=== PATIENT | female | born 1935 | race Caucasian/White ===

== ENCOUNTER 2020-07-31 17:46 | Observation (INO) | payer MEDICARE, SELFPAY ==
--- NOTE | ~2020-07-31 | XR_ITS ---
EXAMINATION: XR chest 2V 08/02/2020 11:00 INDICATION: Follow-up pneumonia. Dyspnea. PROCEDURE: PA and lateral views of the chest COMPARISON: 07/31/2020 FINDINGS: There is bibasilar atelectasis/scarring. No focal pneumonia. The lungs are hyperinflated wh ich is consistent with, but not diagnostic of chronic obstructive pulmonary disease. The cardiomedia stinal silhouette is within normal limits. There are no pleural effusions. There is no pneumothorax suspected. IMPRESSION: 1: Bibasilar atelectasis/scarring. Reviewed, dictated and finalized at location B.
--- NOTE | ~2020-07-31 | XR_ITS ---
EXAMINATION: XR chest 1V portable DATE: 07/31/2020 21:07 INDICATION: Hallucinations. Back pain. TECHNIQUE: A single frontal view of the chest was obtained. COMPARISON: CT abdomen and pelvis 07/31/2020 FINDINGS: There is mild scarring at the lung apices. There are mild airspace opacities in the lower l prisca zones. No pleural effusion or pneumothorax. The heart size is normal. IMPRESSION: 1. Mild airspace opacities in the lower lung zones, likely a combination of atelectasis/scarring and mild pneumonia. Reviewed, dictated and finalized at location A. IMPRESSION: 1. Mild airspace opacities in the lower lung zones, likely a combination of ate lectasis/scarring and mild pneumonia.
--- NOTE | ~2020-07-31 | CT_ITS ---
EXAMINATION: CT abd pelvis lumbar w con DATE: 07/31/2020 20:15 INDICATION: Low back pain. TECHNIQUE: Computed tomography (CT) of the abdomen and pelvis and lumbar spine was performed with 100 mL Omnipaque 350 intravenous contrast. Automated exposure control and iterative reconstruction techn ique were employed. The dose-length product was 253.39 mGy-cm. COMPARISON: None FINDINGS: CT ABDOMEN AND PELVIS: The visualized portions of the lung bases demonstrate mild atelectasis. There is mild bronchiectasis in right middle lobe and right lower lobe. There are centrilobular nodules and tree-in-bud opacities in right middle lobe and lingula. There are small airspace opacities in treva medial segment left lower lobe. These findings are consistent with pneumonia. No pleural effusion. Th e heart size is normal. There are coronary artery calcifications. No pericardial effusion. The liver, gallbladder, spleen, pancreas, adrenal glands, and kidneys are normal. There is diverticulosis of th e colon without evidence of diverticulitis. There are no dilated loops of bowel. The appendix is not visualized. There are no pathologically enlarged lymph nodes. There is no free intraperitoneal fluid. There is severe right hip osteoarthritis and moderate left hip osteoarthritis. CT LUMBAR SPINE: Bone alignment is normal. Vertebral body heights and intervertebral disc heights are normal. The following disc levels are specifically discussed: L1-L2: The disc does not extend beyond the endplate margin. There is mild bilateral facet joint osteo arthritis. There is no neural foraminal stenosis. There is no central canal stenosis. L2-L3: The disc is bulging. There is severe bilateral facet joint osteoarthritis. There is mild left neural foraminal stenosis. There is mild central canal stenosis. L3-L4: The disc is bulging. There is mild bilateral facet joint osteoarthritis. There is mild bilater al neural foraminal stenosis. There is mild central canal stenosis. L4-L5: The disc is bulging. There is moderate bilateral facet joint osteoarthritis. There is mild ruth ateral neural foraminal stenosis. There is mild central canal stenosis. L5-S1: The disc does not extend beyond the endplate margin. There is severe right and moderate left f acet joint osteoarthritis. There is no neural foraminal stenosis. There is no central canal stenosis. IMPRESSION: 1. Mild bilateral pneumonia. The associated bronchiectasis suggests this finding may be chronic or re current. 2. Mild lumbar spondylosis. Reviewed, dictated and finalized at location A. IMPRESSION: 1. Mild bilateral pneumonia. The associated bronchiectasis suggests this findin g may be chronic or recurrent. 2. Mild lumbar spondylosis.
--- NOTE | ~2020-07-31 | CT_ITS ---
EXAMINATION: CT brain wo con DATE: 07/31/2020 21:24 INDICATION: Hallucinations. Confusion. TECHNIQUE: Computed tomography (CT) of the head was performed without intravenous contrast. The mA wa s adjusted according to patient size. Iterative reconstruction technique was employed. The dose-lengt h product was 605.33 mGy-cm. COMPARISON: Head CT 11/24/2012 FINDINGS: There are scattered areas of low attenuation in the cerebral white matter. There is an old lacunar infarct in left lentiform nucleus. There is no intracranial hemorrhage, acute infarction, or abnormal intracranial mass lesion. The ventricles are normal in size. There is a 4 mm saccular aneury sm of right middle cerebral artery. There is mucosal thickening in the paranasal sinuses. There are t race bilateral mastoid effusions. The orbits are normal. IMPRESSION: 1. 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 2. Moderate nonspecific cerebral white matter disease, which likely represents chronic small vessel i schemic disease, worsened from 11/24/2012. 3. 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 Reviewed, dictated and finalized at location A. IMPRESSION: 1. 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 2. Moderate nonspecific cerebral white matter disease, which likely represents chronic small vessel ischemic disease, worsened from 11/24/2012. 3. 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
--- NOTE | ~2020-07-31 | CT_ITS ---
EXAMINATION: CTA brain carotid DATE: 08/02/2020 17:09 INDICATION: Unruptured cerebral aneurysm. TECHNIQUE: Computed tomographic angiography (CTA) of the head was performed without and with 100 mL O mnipaque-350 intravenous contrast. CTA of the neck was performed with intravenous contrast. Automated exposure control and iterative reconstruction technique were employed. The dose-length product was 1 799.25 mGy-cm. Maximum intensity projection and volume rendered 3D-reconstructions were created by mahesh paredes technologist on a separate workstation. COMPARISON: Head CT 07/31/2020 FINDINGS: HEAD CTA: There is an old lacunar infarct in the left lentiform nucleus. There are scattered areas of low attenuation in the cerebral white matter. There is no intracranial hemorrhage, acute infarction, or abnormal intracranial mass lesion. The ventricles are normal in size. There is mucosal thickening in the paranasal sinuses, worst in left maxillary sinus. There is thickening and sclerosis of the le ft maxillary sinus albarado, consistent with chronic sinusitis. The mastoid air cells are normal. The or bits are normal. Left vertebral artery is dominant. There is no significant stenosis of basilar arter y or the posterior cerebral arteries. There is no significant stenosis of the intracranial internal c arotid arteries or anterior or middle cerebral arteries. There is a 4 mm saccular aneurysm of right m iddle cerebral artery. Anterior communicating artery is normal. Posterior communicating arteries are not identified. NECK CTA: There is mild scarring at the lung apices. There are no pathologically enlarged lymph nodes . There is no significant stenosis of the vertebral arteries. There is mild plaque in the proximal in ternal carotid arteries. There is 0% stenosis of the proximal right internal carotid artery relative to normal distal artery lumen diameter (NASCET criteria). There is 0% stenosis of the proximal left i nternal carotid artery relative to normal distal artery lumen diameter. There is severe cervical spon dylosis. IMPRESSION: 1. 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 2. 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 3. Moderate nonspecific cerebral white matter disease, which likely represents chronic small vessel i schemic disease. 4. 0% stenosis of the proximal internal carotid arteries relative to normal distal artery lumen diame ters (NASCET criteria). Reviewed, dictated and finalized at location A. IMPRESSION: 1. 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 2. 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 3. Moderate nonspecific cerebral white matter disease, which likely represents chronic small vessel ischemic disease. 4. 0% stenosis of the proximal internal carotid arteries relative to normal dis donny artery lumen diameters (NASCET criteria).
[2020-07-31 17:50] VITALS: BP 157/110; PULSE 91; RESP 16; TEMP 36.4; O2SAT 100
[2020-07-31 18:31] VITALS: BP 195/96; PULSE 88; RESP 18; O2SAT 98
[2020-07-31 18:49] LABS: Add Urine Microscopic? NO; Appearance Urine Clear (Clear); Bilirubin Urine Negative (Negative); Blood Urine Negative (Negative); Color Urine Yellow (Yellow); Glucose Urine UA Negative (Negative); Ketones Urine Negative (Negative); Leukocyte Esterase Ur Negative LEU/UL (Negative); Nitrate Urine Negative (Negative); Protein Urine Negative (Negative); Specific Grav Ur 1.012 (1.001-1.035); Urobilinogen Urine Negative mg/dL (<2.0)
[2020-07-31 19:11] LABS: Basophils Absolute Auto 0.1 K/mm3 (0.0-0.1); Basophils Percent Auto 0.6 % (0.2-1.2); Eosinophils Percent Auto 0.2 % (0-4.4); Hematocrit 39.1 % (37.0-47.0); Hemoglobin 13.3 g/dL (12.0-15.0); Immature Granulocyte Absolute 0.04 K/mm3 (0.00-0.031); Immature Granulocyte Percent A 0.4 % (0-0.5); Lymphocytes Absolute Auto 1.53 K/mm3 (0.9-3.2); Lymphocytes Percent Auto 14.5 % (18.3-44.2); Mean Corpuscular Hemoglobin 31.1 pg (26-34); Mean Corpuscular Volume 91.4 fl (80-100); Mean Platelet Volume 11.3 fl (7.4-10.4); Monocytes Absolute Auto 0.7 K/mm3 (0.1-0.6); Monocytes Percent Auto 6.8 % (2.6-8.5); Neutrophils Absolute Auto 8.2 K/mm3 (1.3-6.7); Neutrophils Percent Auto 77.5 % (45.5-73.1); Platelet Count Result 216 k/mm3 (150-375); Red Blood Count 4.28 M/mm3 (4.2-5.4); Red Cell Distribution Width 12.6 % (11.5-14.5); White Blood Count 10.6 K/mm3 (4.5-10.0)
[2020-07-31 19:21] LABS: Lactic Acid Reflex 0.8 mmol/L (0.7-2.1)
[2020-07-31 19:22] LABS: Potassium 3.6 mmol/L (3.4-5.0)
--- NOTE | 2020-07-31 19:23 | ED.ABDPAIN ---
HPI - Abdominal Pain General Chief Complaint: Urogenital-Female Stated Complaint: back pain x 15 days/hallucinations Time Seen by Provider: 07/31/20 18:52 Source: patient Mode of arrival: ambulatory Limitations: no limitations History of Present Illness HPI narrative: Patient is an 84-year-old female who presents to emergency department for evaluation of mid lumbar back pain that has been present for 15 days patient is unsure as to the etiology patient denies radiation of pain patient thought maybe she had a urinary tract infection patient notes last night she had hallucinations of seeing things that were not there and hearing music patient lives at home with family and on arrival today is resting comfortably in the room in no distress notes that she has been taken ibuprofen for her back pain and recently restarted her hydrochlorothiazide and otherwise denies any other injury or trauma illness or medication changes has not been seen for this complaint Related Data Allergies Allergy/AdvReac Type Severity Reaction Status Date / Time lisinopril Allergy Unknown Unknown Verified 07/31/20 18:35 Sulfa (Sulfonamide Allergy Unknown Unknown Verified 07/31/20 18:35 Antibiotics) Review of Systems Review of Systems: All systems reviewed & are unremarkable except as noted in HPI and below PMFSH Family History Family History (Updated 03/13/19 @ 13:47 by DOCTOR UNKNOWN) Grandparent Acute myocardial infarction Father Acute myocardial infarction, Onset Age: 81 Mother Family history of pancreatic cancer, Onset Age: 70 Family history of primary malignant neoplasm of liver, Onset Age: 70 Sibling Family history of malignant neoplasm of breast Social History Social History Smoking status: Never smoker Second hand tobacco smoke exposure: No Alcohol intake: current Gender identity (if verbalized by the patient): Female Exam Narrative: Exam Narrative: GENERAL: Well-appearing, well-nourished, and in no acute distress. HEAD: Normocephalic, atraumatic. EYES: PERRLA and EOMI. ENT: Nares clear, no rhinorrhea or epistaxis. Mucous membranes moist. Oropharynx without tonsillar hypertrophy exudate or other lesions. NECK: Supple. No adenopathy or masses. CHEST: Clear to auscultation. No respiratory distress. Slight crackles in the lung bases HEART: Regular rate and rhythm. No murmur heard. Normal peripheral pulses. ABDOMEN: Soft, nontender, nondistended EXTREMITIES: Normal range of motion. No edema. Mid paraspinal lumbar spine no deformities noted SKIN: Warm, dry, no rash. NEURO: No focal deficits. Alert and oriented x3. Cranial nerves II through XII grossly intact. Normal speech. Motor and sensory intact and symmetrical in the extremities PSYCH: Normal mood and affect. Course Course Emergency Course: Patient in the room at this time in no distress resting comfortably aware of the case findings and treatment plan and diagnosis felt best to be kept overnight due to her visual and auditory hallucinations noting that she has also had some in the room. Consultations Consultation #1: Spoke with who is agreed to accept the patient would like the patient to be treated for pneumonia with Zithromax would also like neurology consult for the CAT scan finding Date: 07/31/20 Time: 21:53 Consultation #2: [facility] neurology notes that he feels that it is okay for the patient to stay at [facility] given the CT findings Vital Signs Vital signs: Vital Signs Temperature 97.5 F L 07/31/20 17:50 Pulse Rate 91 07/31/20 17:50 Respiratory Rate 16 07/31/20 17:50 Blood Pressure 157/110 H 07/31/20 17:50 Pulse Oximetry 100 07/31/20 17:50 Temperature 97.5 F L 07/31/20 17:50 Pulse Rate 72 07/31/20 19:37 Respiratory Rate 17 07/31/20 19:37 Blood Pressure 186/93 H 07/31/20 19:37 Pulse Oximetry 98 07/31/20 19:37 MDM - Abdomina
[2020-07-31] MEDS: SODIUM CHLORIDE 0.9% IV 500 ML 999 ML IV CONT (19:36)
[2020-07-31 19:37] VITALS: BP 186/93; PULSE 72; RESP 17; O2SAT 98
[2020-07-31 19:38] LABS: Alanine Aminotransferase 14 U/L (4-35); Albumin Level 4.5 g/dL (3.5-5.1); Alkaline Phosphatase 105 U/L (38-126); Anion Gap 7 mmol/L (8-16); Aspartate Amino Transferase 27 U/L (14-36); Bilirubin,Total 0.7 mg/dL (0.2-1.3); Blood Urea Nitrogen 13 mg/dL (7-17); CRP < 0.5 mg/dL (<1.0); Calcium 9.6 mg/dL (8.4-10.2); Carbon Dioxide 29 mmol/L (22-30); Chloride 97 mmol/L (98-107); Estimated CRCL calculation 36 ml/min; Estimated Glomerular Filt Rate 60; Glucose 99 mg/dL (65-105); Lipase 170 U/L (23-300); Sodium 133 mmol/L (137-145)
[2020-07-31 22:28] VITALS: BP 163/94; PULSE 90; TEMP 36.9; O2SAT 98
[2020-08-01] VITALS: BP 135/83; PULSE 95; RESP 18; TEMP 36.9; O2SAT 97; BMI 19.6
--- NOTE | 2020-08-01 00:10 | ADMGEN ---
This patient, Mckenna Feliciano, was admitted to [facility] Surg Room 332-01. Patient/family oriented to hospital policies and general routines including ID bracelet, bed and alarms, visiting hours, pain management, procedures, bathroom and other care routines, personal items, smoking policy, room service/diet, and visiting hours. Valuables list has been completed. Information on how to activate the Rapid Response Team has been discussed. Patient/Family are encouraged to report perceived risks to care and to ask questions if they do not understand what they are told or what they should do.
[2020-08-01] MEDS: LACTATED RINGERS 1,000 ML 75 ML IV CONT ×2 (00:22→15:06)
--- NOTE | 2020-08-01 01:23 | PM.IMHP ---
H&P: HPI History of Present Illness Date/Time: 08/01/20 01:23 Chief complaint: Pneumonia, auditory and visual hallucinations Narrative: this is a pleasant 84-year-old female with known past medical history of hypertension on chronic hydrochlorothiazide and who presented to the [facility] for evaluation of lower back pain. The patient describes that she has had worsening lower back pain for over a week now and attributes it to increased activity. She states that over a week ago she was doing a lot of yd work including raking of grass and plants. 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 Finally she also admits that she got down off of a truck and when she landed she felt something to weak in her back The night before her symptoms started. For the past week or so the patient has had increased lower back pain. The patient denies any fevers or chills, chest pain, shortness of breath, coughing, dysuria, hematuria. She does report however that she has had a couple days of diarrhea and did experience nausea vomiting when she had diarrhea. She also admits that she has been suffering hallucinations for the past 2 days. Her hallucinations come and go and she describes hearing music coming out of her oven and seeing people that are simply not there.Chest x-ray obtained in the emergency room this evening demonstrated mild airspace opacities in the lower lung zones. The patient was started on IV antibiotics and admitted to the hospital. She was also swabbed for COVID-19, Review of Systems Review of Systems: All systems reviewed & are unremarkable except as noted in HPI and below PMFSH Past Medical History Medical History (Updated 08/01/20 @ 06:38 by Jakub Gonzalez MD) Hypertension Surgical History Surgical History (Updated 08/01/20 @ 01:28 by Jakub Gonzalez MD) History of appendectomy Family History Family History (Updated 03/13/19 @ 13:47 by DOCTOR UNKNOWN) Grandparent Acute myocardial infarction Father Acute myocardial infarction, Onset Age: 81 Mother Family history of pancreatic cancer, Onset Age: 70 Family history of primary malignant neoplasm of liver, Onset Age: 70 Sibling Family history of malignant neoplasm of breast Social History Social History Smoking status: Never smoker Second hand tobacco smoke exposure: No Alcohol intake: current Substance use: never Gender identity (if verbalized by the patient): Female Spiritual care concerns: No Meds Home Medications and Allergies Home Medications Medication Instructions Recorded Confirmed Type hydrochlorothiazide 25 mg tablet 25 mg PO DAILY #90 tablet 09/25/19 08/01/20 Rx Allergies Allergy/AdvReac Type Severity Reaction Status Date / Time lisinopril Allergy Unknown Unknown Verified 07/31/20 18:35 Sulfa (Sulfonamide Allergy Unknown Unknown Verified 07/31/20 18:35 Antibiotics) Vital Signs Vital Signs - 24 hr 07/31/20 17:50 07/31/20 18:31 07/31/20 19:37 Temperature 36.4 C L Pulse Rate 91 88 72 Respiratory Rate 16 18 17 Blood Pressure 157/110 H 195/96 H 186/93 H Pulse Oximetry 100 98 98 07/31/20 22:28 Temperature 36.9 C Pulse Rate 90 Respiratory Rate Blood Pressure 163/94 H Pulse Oximetry 98 Exam Const: General: cooperative, healthy appearing, no acute distress, alert and awake Nutritional Appearance: well nourished Orientation/consciousness: patient oriented x3 HENMT: Head: normal to inspection General nose exam: Normal external nose present Face and sinus: normal facial exam Mouth: Yes Normal oral and palatal mucosa present and Yes oropharynx normal Eyes: Pupils: Equal, round and reactive pupils present EOM: EOMs intact bilaterally Neck: Neck: supple and no JVD Thyroid: thyroid normal Lymphatic: lymphadenopathy no
[2020-08-01 06:00] VITALS: BP 159/91; PULSE 82; RESP 18; TEMP 36.4; O2SAT 98
[2020-08-01 06:58] LABS: Basophils Absolute Auto 0.1 K/mm3 (0.0-0.1); Basophils Percent Auto 0.8 % (0.2-1.2); Eosinophils Absolute Auto 0.1 K/mm3 (0-0.3); Eosinophils Percent Auto 0.7 % (0-4.4); Hematocrit 36.7 % (37.0-47.0); Hemoglobin 12.2 g/dL (12.0-15.0); Immature Granulocyte Absolute 0.03 K/mm3 (0.00-0.031); Immature Granulocyte Percent A 0.4 % (0-0.5); Lymphocytes Absolute Auto 1.62 K/mm3 (0.9-3.2); Lymphocytes Percent Auto 22.8 % (18.3-44.2); Mean Corpuscular HGB Conc 33.2 g/dl (32-36); Mean Corpuscular Hemoglobin 30.9 pg (26-34); Mean Corpuscular Volume 92.9 fl (80-100); Mean Platelet Volume 11.6 fl (7.4-10.4); Monocytes Absolute Auto 0.6 K/mm3 (0.1-0.6); Monocytes Percent Auto 8.9 % (2.6-8.5); Neutrophils Absolute Auto 4.7 K/mm3 (1.3-6.7); Neutrophils Percent Auto 66.4 % (45.5-73.1); Platelet Count Result 208 k/mm3 (150-375); Red Blood Count 3.95 M/mm3 (4.2-5.4); Red Cell Distribution Width 12.9 % (11.5-14.5); White Blood Count 7.1 K/mm3 (4.5-10.0)
[2020-08-01 07:12] LABS: Anion Gap 4 mmol/L (8-16); Blood Urea Nitrogen 11 mg/dL (7-17); Calcium 8.9 mg/dL (8.4-10.2); Carbon Dioxide 30 mmol/L (22-30); Chloride 101 mmol/L (98-107); Estimated CRCL calculation 46 ml/min; Estimated Glomerular Filt Rate > 60; Glucose 95 mg/dL (65-105); Potassium 3.6 mmol/L (3.4-5.0); Sodium 135 mmol/L (137-145)
[2020-08-01 08:00] VITALS: BP 172/82; PULSE 72; RESP 16; TEMP 36.7; O2SAT 98
[2020-08-01] MEDS: FAMOTIDINE 20 MG/2 ML VIAL IV PUSH ×2 (10:04→20:41)
[2020-08-01] MEDS: hydroCHLOROthiazide 25 MG TABLET PO (10:04)
--- NOTE | 2020-08-01 11:37 | WPDNEURCNPN ---
Assessment and Plan Assessment and plan (1) Suspected 2019 novel coronavirus infection: Code(s): Z20.828 - Contact with and (suspected) exposure to other viral communicable diseases Status: Acute (2) Abnormal chest xray: Code(s): R93.89 - Abnormal findings on diagnostic imaging of other specified body structures Status: Acute (3) Lower back pain: Qualifiers: Back pain laterality: midline Chronicity: acute Sciatica presence: without sciatica Qualified Code(s): M54.5 - Low back pain Code(s): M54.5 - Low back pain Status: Acute (4) Hypertension: Qualifiers: Hypertension type: unspecified Qualified Code(s): I10 - Essential (primary) hypertension Code(s): I10 - Essential (primary) hypertension Status: Chronic (5) Pneumonia: Code(s): J18.9 - Pneumonia, unspecified organism Status: Acute (6) Hallucinations: Code(s): R44.3 - Hallucinations, unspecified Status: Acute Additional Plan for the time being treatment will be continued as such with IV fluids diarrhea antihypertensive medication Consult date: 08/01/20 Time Seen: 11:15 HPI: Mckenna Feliciano is a 84 year old female who has been admitted to the hospital for the auditory and visual hallucination along with ongoing history of 1. Hypertension 2. Chronic hydro chlorothiazide therapy 3. Worsening lower back pain over the last week she was doing excessive amount of yd work including raking of grass and plants she is known tocan her tomatoes she was picking up cans and she felt weak in her lower back. with the last week or so she was having increasing low back pain she gave no history of any generalized symptomatology though over the last couple of days she had diarrhea along with mild nausea and vomiting b she accepted that she is having hallucination for the last couple of days which come and go hearing music coming out of her oven seeing people that are simply there she has already been swab for the COVID-19 pneumonia Review of Systems Review of Systems: All systems reviewed & are unremarkable except as noted in HPI and below PMFSH Past Medical History Medical History (Updated 08/01/20 @ 06:38 by Jakub Gonzalez MD) Hypertension Surgical History Surgical History (Updated 08/01/20 @ 01:28 by Jakub Gonzalez MD) History of appendectomy Family History Family History (Updated 03/13/19 @ 13:47 by DOCTOR UNKNOWN) Grandparent Acute myocardial infarction Father Acute myocardial infarction, Onset Age: 81 Mother Family history of pancreatic cancer, Onset Age: 70 Family history of primary malignant neoplasm of liver, Onset Age: 70 Sibling Family history of malignant neoplasm of breast Social History Social History Smoking status: Never smoker Second hand tobacco smoke exposure: No Alcohol intake: current Substance use: never Gender identity (if verbalized by the patient): Female Spiritual care concerns: No Meds Home Medications and Allergies Home Medications Medication Instructions Recorded Confirmed Type hydrochlorothiazide 25 mg tablet 25 mg PO DAILY #90 tablet 09/25/19 08/01/20 Rx Allergies Allergy/AdvReac Type Severity Reaction Status Date / Time lisinopril Allergy Unknown Unknown Verified 07/31/20 18:35 Sulfa (Sulfonamide Allergy Unknown Unknown Verified 07/31/20 18:35 Antibiotics) Vital Signs Vital Signs - 24 hr 07/31/20 17:50 07/31/20 18:31 07/31/20 19:37 Temperature 36.4 C L Pulse Rate 91 88 72 Respiratory Rate 16 18 17 Blood Pressure 157/110 H 195/96 H 186/93 H Pulse Oximetry 100 98 98 07/31/20 22:28 08/01/20 00:00 08/01/20 06:00 Temperature 36.9 C 36.9 C 36.4 C Pulse Rate 90 95 82 Respiratory Rate 18 18 Blood Pressure 163/94 H 135/83 159/91 H Pulse Oximetry 98 97 98 08/01/20 08:00 Temperature 36.7 C Pu
[2020-08-01 12:00] VITALS: BP 136/71; PULSE 78; RESP 18; TEMP 37; O2SAT 98
[2020-08-01 12:25] LABS: SARS-CoV-2 RNA PCR Negative
[2020-08-01 14:00] VITALS: BP 143/72; PULSE 75; RESP 16; TEMP 37.1; O2SAT 99
--- NOTE | 2020-08-01 15:50 | PM.IMPN ---
Subjective Date/time seen: 08/01/20 15:50 Interval history: Pt admitted with pneumonia, auditory and visual hallucinations, no acute issues reported by nurses, pt seen by hardwood floor installer this morning history of LBP and HTN and pneumonia. Pt is COVID negative can move out of the isolation room. Objective Data Vital Signs Vital Signs: Vital Signs - 24 hr 07/31/20 17:50 07/31/20 18:31 07/31/20 19:37 Temperature 36.4 C L Pulse Rate 91 88 72 Respiratory Rate 16 18 17 Blood Pressure 157/110 H 195/96 H 186/93 H Pulse Oximetry 100 98 98 07/31/20 22:28 08/01/20 00:00 08/01/20 06:00 Temperature 36.9 C 36.9 C 36.4 C Pulse Rate 90 95 82 Respiratory Rate 18 18 Blood Pressure 163/94 H 135/83 159/91 H Pulse Oximetry 98 97 98 08/01/20 08:00 08/01/20 12:00 08/01/20 14:00 Temperature 36.7 C 37.0 C 37.1 C Pulse Rate 72 78 75 Respiratory Rate 16 18 16 Blood Pressure 172/82 H 136/71 143/72 H Pulse Oximetry 98 98 99 Intake/Output Intake/Output: Intake & Output 07/29/20 07/30/20 07/31/20 08/01/20 23:59 23:59 23:59 23:59 Intake Total 750 1610 Output Total 400 Balance 750 1210 Meds/Results Medications: Active Medications Generic Name Dose Route Start Last Admin Trade Name Freq PRN Reason Stop Dose Admin Cyclobenzaprine HCl 10 mg 08/01/20 00:45 Flexeril PO Q8H PRN Muscle Spasm Famotidine 20 mg 08/01/20 09:00 08/01/20 10:04 Pepcid Iv IV PUSH 20 mg Q12HR PILAR Administration Hydralazine HCl 10 mg 07/31/20 21:10 Apresoline Hcl Inj IV PUSH Q8H PRN see comment Hydrochlorothiazide 25 mg 08/01/20 09:00 08/01/20 10:04 Hydrochlorothiazide PO 25 mg DAILY PILAR Administration Acetaminophen 1,000 mg in 100 mls @ 400 mls/hr 07/31/20 21:56 Ofirmev 1,000 Mg Ivpb IVPB 08/01/20 21:57 Q6H PRN Mild Pain (1-3) or Fever Lactated Ringer's 1,000 mls @ 75 mls/hr 07/31/20 22:00 08/01/20 15:06 Lr - Lactated Ringers Iv IV CONT 75 mls/hr .[id number] PILAR Administration Radiology Results: ITS Impressions Miscellaneous CT Procedure 07/31/20 20:16 IMPRESSION: 1. Mild bilateral pneumonia. The associated bronchiectasis suggests this finding may be chronic or recurrent. 2. Mild lumbar spondylosis. Chest X-Ray 07/31/20 21:08 IMPRESSION: 1. Mild airspace opacities in the lower lung zones, likely a combination of atelectasis/scarring and mild pneumonia. Head CT 07/31/20 21:36 IMPRESSION: 1. 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 2. Moderate nonspecific cerebral white matter disease, which likely represents chronic small vessel ischemic disease, worsened from 11/24/2012. 3. 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 Labs Labs: Laboratory Results - last 24 hr 07/31/20 07/31/20 07/31/20 18:33 19:02 19:02 WBC 10.6 H RBC 4.28 Hgb 13.3 Hct 39.1 MCV 91.4 MCH 31.1 MCHC 34.0 RDW 12.6 Plt Count 216 MPV 11.3 H Immature Gran % (Auto) 0.4 Neut % (Auto) 77.5 H Lymph % (Auto) 14.5 L [place] % (Auto) 6.8 Eos % (Auto) 0.2 Baso % (Auto) 0.6 Lymph # (Auto) 1.53 [place] # (Auto) 0.7 H Eos # (Auto) 0.0 Baso # (Auto) 0.1 Abs Immat Gran (auto) 0.04 H Absolute Neuts (auto) 8.2 H Absolute Nucleated RBC 0.0 Nucleated RBC % 0.0 Sodium 133 L Potassium 3.6 Chloride 97 L Carbon Dioxide 29 Anion Gap 7 L BUN 13 Creatinine 0.90 Estim Creat Clear Calc 36 Estimated GFR 60 Glucose 99 Lactic Acid Calcium 9.6 Total Bilirubin 0.7 AST 27 ALT 14 Alkaline Phosphatase 105 C-Reactive Protein < 0.5 Total Protein 8.0 Albumin 4.5 Lipase 170 Urine Color Yellow Urine Appearance Clear Urine pH 6.0 Ur Specific [place] 1.012 Urine Protein Negative Urine Glucose (UA) Negative Urine Ketones Negative Ur Blood (Man) Negative Urine Nitrate Negative Urine Bilirubin Negative Urine Urobi
[2020-08-01 22:00] VITALS: BP 141/74; PULSE 78; RESP 20; TEMP 36.9; O2SAT 98
[2020-08-02] MEDS: LACTATED RINGERS 1,000 ML 75 ML IV CONT (04:40)
[2020-08-02 06:00] VITALS: BP 135/68; PULSE 82; RESP 20; TEMP 36.8; O2SAT 96
[2020-08-02] MEDS: FAMOTIDINE 20 MG/2 ML VIAL IV PUSH (09:00)
[2020-08-02] MEDS: hydroCHLOROthiazide 25 MG TABLET PO (09:00)
--- NOTE | 2020-08-02 13:28 | WPDNEUROPN ---
Progress Note: A&P Assessment and Plan (1) Abnormal chest xray: Code(s): R93.89 - Abnormal findings on diagnostic imaging of other specified body structures Status: Acute (2) Lower back pain: Qualifiers: Chronicity: acute Back pain laterality: midline Sciatica presence: without sciatica Qualified Code(s): M54.5 - Low back pain Code(s): M54.5 - Low back pain Status: Acute (3) Hypertension: Qualifiers: Hypertension type: unspecified Qualified Code(s): I10 - Essential (primary) hypertension Code(s): I10 - Essential (primary) hypertension Status: Chronic (4) Pneumonia: Code(s): J18.9 - Pneumonia, unspecified organism Status: Acute (5) Hallucinations: Code(s): R44.3 - Hallucinations, unspecified Status: Acute (6) Unruptured cerebral aneurysm: Code(s): I67.1 - Cerebral aneurysm, nonruptured Status: Acute Additional Plan I discussed in detail the finding of which is 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 pressure is lucid enough to understand it well and I told her if she wishes to pursue it further then she can be referred to Neurosurgery and/or interventional neuroradiologist to address the issue at the time of this examination the patient neurological examination is completely nonfocal and there is nothing to suggest any evidence either on the CT or an the clinical examination of rupturing of the aneurysm Review of Systems Review of Systems: All systems reviewed & are unremarkable except as noted in HPI and below Exam Const: General: comfortable and no acute distress HENMT: General nose exam: Normal nares present Mouth: Yes moist mucous membranes Eyes: General: appearance normal, both eyes and all related structures Neck: Neck: supple and no JVD Resp: Effort & Inspection: normal respiratory effort Auscultation: clear to auscultation bilaterally Cardio: Rate: regular rate Rhythm: regular rhythm GI: Auscultation: normal bowel sounds Skin: General skin exam: normal color and no rashes or lesions noted Neuro: Other: patient is awake alert well oriented follows all commands and normal speech and language functions and no lateralized deficit is noted she sitting and give me a long story about her son's issues and the legal [place] Extrem: General: normal to inspection Psych: Mental Status: mental status grossly normal Objective Data Vital Signs Vital Signs: Vital Signs - 24 hr 08/01/20 14:00 08/01/20 22:00 08/02/20 06:00 Temperature 37.1 C 36.9 C 36.8 C Pulse Rate 75 78 82 Respiratory Rate 16 20 20 Blood Pressure 143/72 H 141/74 H 135/68 Pulse Oximetry 99 98 96 Intake/Output Intake/Output: Intake & Output 07/30/20 07/31/20 08/01/20 08/02/20 23:59 23:59 23:59 23:59 Intake Total 750 2050 1790 Output Total 900 650 Balance 750 1150 1140 Meds/Results Medications: Active Medications Generic Name Dose Route Start Last Admin Trade Name Freq PRN Reason Stop Dose Admin Cyclobenzaprine HCl 10 mg 08/01/20 00:45 Flexeril PO Q8H PRN Muscle Spasm Famotidine 20 mg 08/01/20 09:00 08/02/20 09:00 Pepcid Iv IV PUSH 20 mg Q12HR PILAR Administration Hydralazine HCl 10 mg 07/31/20 21:10 Apresoline Hcl Inj IV PUSH Q8H PRN see comment Hydrochlorothiazide 25 mg 08/01/20 09:00 08/02/20 09:00 Hydrochlorothiazide PO 25 mg DAILY PILAR Administration Lactated Ringer's 1,000 mls @ 75 mls/hr 07/31/20 22:00 08/02/20 04:40 Lr - Lactated Ringers Iv IV CONT 75 mls/hr .[id number] PILAR Administration Azithromycin 500 mg in 250 mls @ 250 mls/hr 08/02/20 09:00 08/02/20 10:00 Zithromax IVPB Infused Q24H PILAR Infusion Radiology Results: ITS Impressions Miscellaneous CT Procedure 07/31/20 20:16 IMPRESSION: 1. Mild bilateral pneumonia. The associated bronchiectasis suggests this finding may be ch
[2020-08-02 14:00] VITALS: BP 140/81; PULSE 79; RESP 18; TEMP 36.9; O2SAT 96
--- NOTE | 2020-08-02 18:04 | PM.DS ---
DS: Admitting Diagnosis Admitting Diagnosis Admitting Diagnosis: Pneumonia, auditory and visual hallucinations DS: Discharge Diagnosis Discharge Diagnosis (1) Lower back pain: Qualifiers: Chronicity: acute Back pain laterality: midline Sciatica presence: without sciatica Qualified Code(s): M54.5 - Low back pain Code(s): M54.5 - Low back pain Status: Acute Assessment and Plan: CT back showing mild lumbar spondylosis. Likely mechanical back pain from possible back strain from recent exertional activities. She was started on PT. Flexeril available but did not require this. She is up walking. She feels pain much better. (2) Abnormal chest xray: Code(s): R93.89 - Abnormal findings on diagnostic imaging of other specified body structures Status: Acute Assessment and Plan: CT of the lumbar showing mild bronchiectasis in right middle lobe and right lower lobe; centrilobular nodules and tree-in-bud opacities in right middle lobe and lingula; and small airspace opacities in anteromedial segment left lower lobe that is consistent with pneumonia. Azithromycin started in ED. Patient however without symptoms. CXR on 08/02 showing atelectasis/scarring. No fevers and WBC 10.6 on admission. Abx stopped by admitting provider but were restarted by another provider. Overall, felt less likely PNA (or possibly viral picture). Instructed patient and family to monitor off abx. (3) Hypertension: Qualifiers: Hypertension type: unspecified Qualified Code(s): I10 - Essential (primary) hypertension Code(s): I10 - Essential (primary) hypertension Status: Chronic Assessment and Plan: BP elevated at times early in her hospital course but improved. We continued her HCTZ. PRN IV hydralazine availabe but did not require this. (4) Hallucinations: Code(s): R44.3 - Hallucinations, unspecified Status: Acute Assessment and Plan: May be secondary to acute delirium from pain? No evidence of infection. UA clear. Currently the patient is not having any hallucinations. Neurology was consulted. (5) Suspected 2019 novel coronavirus infection: Code(s): Z20.828 - Contact with and (suspected) exposure to other viral communicable diseases Status: Acute Assessment and Plan: The patient has been swabbed for COVID-19 but negative. 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 Neurology was consulted. 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 Patient does not want any further workup and wanting to go home. She voices understanding that she will need to go to [facility] for further evaluation. DS: Summary Hospital Course Reason for hospitalization: 84yo female here for hallucinations. Please se H&P for details Hospital Course: As above Time Spent with Patient Time attestation: Total time spent providing and/or coordinating discharge services:35 minutes Time spent: Greater than 30 minutes Specific discharge activities: discussed with patient and family Exam Narrative: Exam Narrative: AF 98.3 135/68 82 20 96% ra Gen - NARD Chest - CTA bilaterally CV - RRR S1/S2 Abd - soft, NT/ND, +BS Ext - nonpitting edema Neuro - AOx4 Discharge Plan Discharge Attending physician on discharge: Kwadwo Peralta Consulting providers: Adelso Howard ; [place] Discharging Clinician: Kwadwo Peralta Anticipated Discharge Date/Time: 08/02/20 18:20 Patient Disposition: Home, Self-Care Activity: as tolerated Diet: regular Discharge Instructions: Please avoid large gathering, wear face coverings in public
== END 2020-08-02 19:40 | disposition home or self-care (01) ==
LOC: ANHED 22:27 → ANH3MEDSUR 08-01 09:41
PROVIDERS: Emergency Medicine Emergency Medical Services; Admitting Provider Family Medicine; Emergency Provider Emergency Medicine; Visit Provider Internal Medicine
DX: J47.0 Bronchiectasis with acute lower respiratory infection (principal); J18.9 Pneumonia, unspecified organism; R44.1 Visual hallucinations; R44.0 Auditory hallucinations; I67.1 Cerebral aneurysm, nonruptured; I10 Essential (primary) hypertension; Z20.828 Contact with and (suspected) exposure to other viral communicable diseases; M47.816 Spondylosis without myelopathy or radiculopathy, lumbar region; Z86.73 Personal history of transient ischemic attack (TIA), and cerebral infarction without residual deficits
CPT/HCPCS: 36415; 70450; 70496; 70498; 71045; 71046; 72132; 74177; 80048; 80053; 81003; 83605; 83690; 85025; 86140; 87635; 96361; 96365; 96366; 96375; 96376; 97161; 99285; A9270; C9803; G0378; J0456; J7040; J7120; Q9967; U0003

== ENCOUNTER → 2022-12-07 09:35 | Outpatient (CLI) | payer MEDICARE, SELFPAY ==
--- NOTE | ~2022-12-07 | XR_ITS ---
EXAMINATION: XR hip RT min 2V DATE: 12/07/2022 09:51 INDICATION: Right hip pain. TECHNIQUE: 2 views of right hip were obtained. COMPARISON: Pelvis radiograph 03/15/2008 FINDINGS: Bone alignment is normal. No fracture. There is advanced right hip osteoarthritis including flattening of superior femoral head. IMPRESSION: 1. Advanced right hip osteoarthritis. Reviewed, dictated and finalized at location A. E/M ENGINEER
== END ==
PROVIDERS: PCP Family Medicine; Visit Provider Family Medicine
DX: M16.11 Unilateral primary osteoarthritis, right hip (principal)
CPT/HCPCS: 73502

== ENCOUNTER 2022-12-08 08:32 | Outpatient (CLI) | payer MEDICARE, SELFPAY ==
[2022-12-08 19:58] LABS: Alanine Aminotransferase 17 U/L (6-35); Alkaline Phosphatase 72 U/L (38-126); Anion Gap 4 mmol/L (8-16); Aspartate Amino Transferase 30 U/L (14-36); Bilirubin,Total 0.7 mg/dL (0.2-1.3); Blood Urea Nitrogen 16 mg/dL (7-17); Calcium 8.9 mg/dL (8.4-10.2); Carbon Dioxide 34 mmol/L (22-30); Chloride 101 mmol/L (98-107); Cholesterol 207 mg/dL (0-200); Estimated Glomerular Filt Rate 59; Glucose 95 mg/dL (65-110); HDL Direct 63 mg/dL; Potassium 3.6 mmol/L (3.4-5.0); Sodium 139 mmol/L (137-145); Triglycerides 110 mg/dL (<150)
[2022-12-08 20:10] LABS: LDL Cholesterol Direct 97 mg/dL
== END 2022-12-08 08:33 | disposition home or self-care (01) ==
LOC: ANHGOSHLAB 08:33
PROVIDERS: PCP Family Medicine; Visit Provider Family Medicine
DX: I10 Essential (primary) hypertension (principal); Z13.220 Encounter for screening for lipoid disorders
CPT/HCPCS: 36415; 80053; 80061